=== PATIENT | male | born 1975 | race Caucasian/White ===

== ENCOUNTER → 2016-12-02 | Outpatient (CLI) | payer OTHER ==
[~2016-12-02] MED LIST: AMOXICILLIN875 MG PO; CLONAZEPAM0.5 MG PO; CYCLOBENZAPRINE5 MG PO; HYDROCODON-ACE1 EAC7 PO; MOTRIN600 MG PO; PROAIR HFA8.5 GM IH
== END | disposition home or self-care (01) ==
LOC: RES 08:22
DX: Z02.71 Encounter for disability determination (principal); Z13.83 Encounter for screening for respiratory disorder NEC
CPT/HCPCS: 94060; 94729; 94760

== ENCOUNTER 2017-05-08 11:34 | Day surgery (SDC) | payer OTHER ==
[~2017-05-08 11:34] MED LIST changes: +ADVIL200 MG PO; +CELEBREX100 MG PO; +DULERA 200 MCG/13 GM IH; +ERGOCALCIF50000 UNIT PO; +INCRUSE ELLI62.5 MCG IH; +LORTAB 10-3251 EACH PO; +PRILOSEC OTC20 MG PO; +TYLENOL EXTRA500 MG PO
== END 2017-05-08 12:46 | disposition home or self-care (01) ==
LOC: PAIN 11:34 → SDC 11:45 → PAIN 11:45
DX: M47.22 Other spondylosis with radiculopathy, cervical region (principal); G89.4 Chronic pain syndrome; M54.2 Cervicalgia; G89.29 Other chronic pain; M54.5 Low back pain; M79.1 Myalgia; F41.8 Other specified anxiety disorders; J44.9 Chronic obstructive pulmonary disease, unspecified; K21.9 Gastro-esophageal reflux disease without esophagitis; F17.210 Nicotine dependence, cigarettes, uncomplicated; Z79.891 Long term (current) use of opiate analgesic
CPT/HCPCS: J1030; J2250; J3010; S0020

== ENCOUNTER 2017-05-27 07:29 | Day surgery (SDC) | payer OTHER ==
[~2017-05-27] VITALS: Ht 170.2 cm; Wt 81.6 kg
[~2017-05-27 07:29] MED LIST changes: +DULERA 100 MCG/13 GM IH
== END 2017-05-27 09:00 | disposition home or self-care (01) ==
LOC: PAIN 07:29
DX: M47.22 Other spondylosis with radiculopathy, cervical region (principal); M54.2 Cervicalgia; G89.29 Other chronic pain; J44.9 Chronic obstructive pulmonary disease, unspecified; K21.9 Gastro-esophageal reflux disease without esophagitis; F41.9 Anxiety disorder, unspecified; F17.210 Nicotine dependence, cigarettes, uncomplicated; Z79.891 Long term (current) use of opiate analgesic
CPT/HCPCS: J1030; J2250; J3010; S0020